=== PATIENT | female | born 1960 | race African-American/Black ===

== ENCOUNTER 2016-12-06 13:43 | Emergency (ER) | payer OTHER ==
[~2016-12-06] VITALS: Ht 152.4 cm; Wt 77.6 kg
[~2016-12-06 13:43] MED LIST: ATIVAN1 MG PO; CELEXA 20 MG TA20 M1 PO; CLONIDINE HCL0.2 M2 PO; FLEXERIL PO; HYDROCHLOROTHIA25 M2 PO; METFORMIN 500500 MG PO; METOCLOPRAMIDE10 MG PO; NEURONTIN 300300 MG PO; PERCOCET 5-3251 EACH PO; PHENERGAN 25 MG25 M1 PO
[2016-12-06] MEDS ORDERED: BACTRIM DS TAB1 EACH PO (14:41)
[2016-12-06 15:05] VITALS: BP 139/89
== END 2016-12-06 15:00 | disposition home or self-care (01) ==
LOC: ER 13:43
DX: L02.214 Cutaneous abscess of groin (principal); G89.29 Other chronic pain; M54.5 Low back pain; I10 Essential (primary) hypertension; E11.9 Type 2 diabetes mellitus without complications; F17.210 Nicotine dependence, cigarettes, uncomplicated; Z90.710 Acquired absence of both cervix and uterus; Z85.3 Personal history of malignant neoplasm of breast; Z88.6 Allergy status to analgesic agent